=== PATIENT | male | born 1965 | race Caucasian/White ===

== ENCOUNTER 2021-04-16 22:59 | Emergency (ER) | payer BC ==
[~2021-04-16] VITALS: Ht 175.3 cm; Wt 77.1 kg
[2021-04-17 00:20] VITALS: BP 127/87
[2021-04-17] MEDS ORDERED: CARB15DR12 EACH EAR (01:33)
--- NOTE | 2021-04-17 01:37 | NUR ---
Patient discharged to home in stable condition. Written and verbal after care instructions given. Patient verbalizes understanding of instruction.
== END 2021-04-17 01:58 | disposition home or self-care (01) ==
LOC: ER 23:04
DX: H93.12 Tinnitus, left ear (principal); H61.22 Impacted cerumen, left ear; Z98.890 Other specified postprocedural states; Z60.2 Problems related to living alone